=== PATIENT | female | born 1985 | race Caucasian/White ===

== ENCOUNTER 2020-02-15 01:58 | Emergency (ER) | payer OTHER, MEDICAID ==
[2020-02-15] MEDS ORDERED: Ondansetron 4 MG/2 ML SDV IVPUSH ONE (02:15)
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
[2020-02-15] MEDS ORDERED: Sodium Chloride 0.9% 1,000 ML IV ONE (02:27)
[2020-02-15 02:34] LABS: ANION GAP 21.3 mEq/L (7-13); CHLORIDE,CL 103 mmol/L (98-107); SODIUM,NA 143 mmol/L (136-145)
[2020-02-15] MEDS: Lactated Ringers 1,000 ML IV SCH (02:50)
[2020-02-15] MEDS: Metoclopramide 10 MG/2 ML SDV IVPUSH ONE (02:51)
[2020-02-15] MEDS: Ondansetron 4 MG/2 ML SDV ONE (02:52)
[2020-02-15] MEDS: Metoclopramide 10 MG/2 ML SDV ONE (02:53)
[2020-02-15] MEDS ORDERED: Diphtheria,Pertussis(Acell),Tetanus Vaccine 0.5 ML SDV ONE (03:02)
[2020-02-15] MEDS: Diphtheria,Pertussis(Acell),Tetanus Vaccine 0.5 ML SDV IM ONE (03:05)
[2020-02-15] MEDS: ceFAZolin 1 GM in Premix Bag 1 BAG IV ONE (03:06)
[2020-02-15 03:08] LABS: PTT,PARTIAL THROMBOPLSTIN TIME 21.5 SEC (22.0-34.0)
== END 2020-02-15 03:12 ==
LOC: DL.ED 01:58
DX: S82.202C Unspecified fracture of shaft of left tibia, initial encounter for open fracture type IIIA, IIIB, or IIIC (principal); S06.0X9A Concussion with loss of consciousness of unspecified duration, initial encounter; Z23 Encounter for immunization; V58.5XXA Driver of pick-up truck or van injured in noncollision transport accident in traffic accident, initial encounter; Y92.410 Unspecified street and highway as the place of occurrence of the external cause
CPT/HCPCS: 36415; 71045; 73560; 73590; 80053; 80307; 85025; 85610; 85730; 90471; 90715; 96361; 96374; 96375; 99285; J0690; J2405; J2765; J7120